=== PATIENT | female | born 1990 | race Two or more races ===

== ENCOUNTER 2019-04-06 17:26 | Inpatient (IN) | payer OTHER ==
[2019-04-06 17:55] VITALS: BMI 38.4
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
[2019-04-06] MEDS ORDERED: BISMUTH SUBSALICYLATE 524 MG/30 ML UD PO PRN (21:02)
[2019-04-06] MEDS ORDERED: MENTHOL/PHENOL 1 EACH UD MM PRN (21:02)
[2019-04-06] MEDS ORDERED: ACETAMINOPHEN 325 MG TABLET (FP) PO PRN ×2 (21:02)
[2019-04-06] MEDS ORDERED: IBUPROFEN 400 MG TABLET (FP) PO PRN (21:02)
[2019-04-06] MEDS ORDERED: MAG HYDROX/AL HYDROX/SIMETH 30 ML UNIT-DOSE CUP PO PRN (21:02)
[2019-04-06] MEDS ORDERED: MAGNESIUM CITRATE 300 ML BOTTLE PO PRN (21:02)
[2019-04-06] MEDS ORDERED: diazePAM 5 MG TABLET PO PRN (21:02)
[2019-04-06] MEDS ORDERED: MAGNESIUM HYDROX 2400MG/30ML ORAL SUSPENSION 30 ML CUP PO PRN (21:02)
[2019-04-06] MEDS: diazePAM 5 MG TABLET PO SCH (22:38)
[2019-04-06] MEDS: THIAMINE HCL 100 MG TABLET (FP) PO SCH (22:46)
[2019-04-06] MEDS: MELATONIN 5 MG TABLETS PO PRN (23:04)
[2019-04-07] MEDS: diazePAM 5 MG TABLET PO SCH ×3 (05:41→22:30)
[2019-04-07] MEDS: METHOCARBAMOL 500 MG TABLET PO PRN (05:43)
[2019-04-07] MEDS: hydrOXYzine PAMOATE 25 MG CAPSULE (FP) PO PRN (05:43)
[2019-04-07 09:52] LABS: HEMATOCRIT 32.9 % (32.4-45.2); HEMOGLOBIN 10.6 GM/dL (10.7-15.3); MCH 26.5 pg (25.7-33.7); MCHC 32.3 g/dl (32.0-36.0); MEAN PLT VOLUME 9.4 fl (7.5-11.1); PLATELET COUNT 88 K/MM3 (134-434); RBC 4.01 M/mm3 (3.60-5.2); RDW 15.5 % (11.6-15.6); WHITE BLOOD COUNT 5.5 K/mm3 (4.0-10.0)
[2019-04-07] MEDS ORDERED: ONDANSETRON *ODT* 4 MG TABLET SL ONE (09:57)
--- NOTE | 2019-04-07 10:02 | PN ---
S CIWA - CIWA Score Nausea/Vomitin-Mild Nausea/No Vomiting Muscle Tremors: 3 Anxiety: 4-Mod. Anxious/Guarded Agitation: 2 Paroxysmal Sweats: 2 Orientation: 0-Oriented Tacttile Disturbances: 0-None Auditory Disturbances: 0-None Visual Disturbances: 0-None Headache: 1-Very Mild CIWA-Ar Total Score: 13 [facility] Progress Note (SOAP) Subjective: 28 years old female admitted on 04/06/19 for benzo withdrawal sx management treating with valium detox regimen c/o nausea after breakfast zofran 8mg sl x 1 c/o chronic back pain treated with tylenal lidocaine patch to lumbar spin Objective: 04/07/19 10:02 Vital Signs Temperature 96.3 F L 04/07/19 09:15 Pulse Rate 83 04/07/19 09:15 Respiratory Rate 18 04/07/19 09:15 Blood Pressure 102/74 04/07/19 09:15 O2 Sat by Pulse Oximetry (%) Laboratory Last Values WBC 5.5 K/mm3 (4.0-10.0) 04/07/19 08:15 RBC 4.01 M/mm3 (3.60-5.2) 04/07/19 08:15 Hgb 10.6 GM/dL (10.7-15.3) L 04/07/19 08:15 Hct 32.9 % (32.4-45.2) 04/07/19 08:15 MCV 82.0 fl (80-96) 04/07/19 08:15 MCH 26.5 pg (25.7-33.7) 04/07/19 08:15 MCHC 32.3 g/dl (32.0-36.0) 04/07/19 08:15 RDW 15.5 % (11.6-15.6) 04/07/19 08:15 Plt Count 88 K/MM3 (134-434) L 04/07/19 08:15 MPV 9.4 fl (7.5-11.1) 04/07/19 08:15 POC Urine HCG, Qual Negative 04/06/19 18:30 lab noted low plt discontinue motrin Assessment: 04/07/19 10:04 benzo withdrawal Plan: valium regimen
--- NOTE | 2019-04-07 10:09 | EKG ---
Test Reason : Blood Pressure : / mmHG Vent. Rate : 079 BPM Atrial Rate : 079 BPM P-R Int : 126 ms QRS Dur : 088 ms QT Int : 366 ms P-R-T Axes : 048 022 -02 degrees QTc Int : 419 ms SINUS RHYTHM WITH SINUS ARRHYTHMIA OTHERWISE NORMAL ECG NO PREVIOUS ECGS AVAILABLE Confirmed by EREN JOE MD ([id number]) on 04/07/2019 10:08:47 AM Referred By: Olu Thornton Confirmed By:EREN JOE MD
[2019-04-07 10:14] LABS: ALBUMIN 3.7 g/dl (3.4-5.0); BILIRUBIN,TOTAL 0.2 mg/dL (0.2-1); BLOOD UREA NITROGEN 18.1 mg/dL (7-18); CALCIUM 8.6 mg/dL (8.5-10.1); CREATININE 0.9 mg/dL (0.55-1.3); POTASSIUM 3.9 mmol/L (3.5-5.1); TOT PROT 7.2 g/dl (6.4-8.2)
[2019-04-07] MEDS: PRENATAL VITAMINS W/ FOLIC ACID TABLET (FP) PO SCH (10:57)
[2019-04-07] MEDS: LIDOCAINE 5% TOPICAL PATCH TP SCH (10:58)
[2019-04-07] MEDS: cloNIDine HCL 0.1 MG TABLET PO PRN ×2 (11:06→22:30)
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
[2019-04-07] MEDS ORDERED: LIDOCAINE PATCH REMOVAL MC SCH (22:00)
[2019-04-07] MEDS: THIAMINE HCL 100 MG TABLET (FP) PO SCH (22:30)
[2019-04-07] MEDS: MELATONIN 5 MG TABLETS PO PRN (22:31)
[2019-04-08] MEDS ORDERED: diazePAM 5 MG TABLET PO SCH (06:00)
[2019-04-08] MEDS ORDERED: LOPERAMIDE HCL 2 MG CAPSULE PO ONE (09:48)
[2019-04-08] MEDS: LIDOCAINE 5% TOPICAL PATCH TP SCH (10:02)
[2019-04-08] MEDS: PRENATAL VITAMINS W/ FOLIC ACID TABLET (FP) PO SCH (10:02)
--- NOTE | 2019-04-08 12:32 | PN ---
S CIWA - CIWA Score Nausea/Vomitin-Mild Nausea/No Vomiting Muscle Tremors: 2 Anxiety: 2 Agitation: 2 Paroxysmal Sweats: 1-Minimal Palms Moist Orientation: 0-Oriented Tacttile Disturbances: 0-None Auditory Disturbances: 0-None Visual Disturbances: 0-None Headache: 1-Very Mild CIWA-Ar Total Score: 9 [facility] Progress Note (SOAP) Subjective: 28 years old female admitted on 04/06/19 for benzo withdrawal sx management treating with valium detox regimen c/o [place] stool imodium 4 mg po x 1 c/o chronic back pain encourage lidocain patch Objective: 04/08/19 12:32 Vital Signs Temperature 98.2 F 04/08/19 09:28 Pulse Rate 79 04/08/19 09:28 Respiratory Rate 18 04/08/19 09:28 Blood Pressure 111/74 04/08/19 09:28 O2 Sat by Pulse Oximetry (%) Laboratory Last Values WBC 5.5 K/mm3 (4.0-10.0) 04/07/19 08:15 RBC 4.01 M/mm3 (3.60-5.2) 04/07/19 08:15 Hgb 10.6 GM/dL (10.7-15.3) L 04/07/19 08:15 Hct 32.9 % (32.4-45.2) 04/07/19 08:15 MCV 82.0 fl (80-96) 04/07/19 08:15 MCH 26.5 pg (25.7-33.7) 04/07/19 08:15 MCHC 32.3 g/dl (32.0-36.0) 04/07/19 08:15 RDW 15.5 % (11.6-15.6) 04/07/19 08:15 Plt Count 88 K/MM3 (134-434) L 04/07/19 08:15 MPV 9.4 fl (7.5-11.1) 04/07/19 08:15 Sodium 141 mmol/L (136-145) 04/07/19 08:15 Potassium 3.9 mmol/L (3.5-5.1) 04/07/19 08:15 Chloride 109 mmol/L (98-107) H 04/07/19 08:15 Carbon Dioxide 26 mmol/L (21-32) 04/07/19 08:15 Anion Gap 6 MMOL/L (8-16) L 04/07/19 08:15 BUN 18.1 mg/dL (7-18) H 04/07/19 08:15 Creatinine 0.9 mg/dL (0.55-1.3) 04/07/19 08:15 Est GFR (CKD-EPI)AfAm 99.44 04/07/19 08:15 Est GFR (CKD-EPI)NonAf 85.80 04/07/19 08:15 Random Glucose 81 mg/dL (74-106) 04/07/19 08:15 Calcium 8.6 mg/dL (8.5-10.1) 04/07/19 08:15 Total Bilirubin 0.2 mg/dL (0.2-1) 04/07/19 08:15 AST 18 U/L (15-37) 04/07/19 08:15 ALT 43 U/L (13-61) 04/07/19 08:15 Alkaline Phosphatase 53 U/L (45-117) 04/07/19 08:15 Total Protein 7.2 g/dl (6.4-8.2) 04/07/19 08:15 Albumin 3.7 g/dl (3.4-5.0) 04/07/19 08:15 POC Urine HCG, Qual Negative 04/06/19 18:30 RPR Titer Nonreactive (NONREACTIVE) 04/07/19 08:15 lab noted 04/08/19 12:33 two round 2 cm in diameter bruises noted on right calf none tender on palpation and left lateral upper leg Assessment: 04/08/19 12:35 benzo withdrawal patient agrees to bring in lab report to primary care community health service provider for follow up Plan: valium regimen
[2019-04-08] MEDS: METHOCARBAMOL 500 MG TABLET PO PRN (12:47)
[2019-04-08] MEDS: hydrOXYzine PAMOATE 25 MG CAPSULE (FP) PO PRN (12:47)
[2019-04-08] MEDS: cloNIDine HCL 0.1 MG TABLET PO PRN (12:47)
[2019-04-08 13:07] VITALS: BP 107/74; PULSE 76; TEMP 98.7
--- NOTE | 2019-04-08 14:45 | DS ---
[facility] Detox Discharge Summary Admission Date: 04/06/19 Discharge Date: 04/08/19 - History Present History: Sedative Dependence Additional Comments: 28 years old female admitted on 04/06/19 for benzo withdrawal sx management treated with valium detox regimen patient tolerated well alert oriented x 3 seen by psychiatrist while in detox no medical intervention at this time patient prefers to go home today and prepare for [facility] admission tomorrow patient prefers to leave the detox unit today as one day early as estimated discharge date of 04/09/19 case discussed with the nurse routine discharge is appropriated respiratory clear lungs bilaterally on auscultation extremities full range of motion skin warm and dry Pertinent Past History: patient agrees to bringing in lab report to community primary health service provider for follow up - Physical Exam Results Vital Signs: Vital Signs Temperature 98.7 F 04/08/19 13:07 Pulse Rate 76 04/08/19 13:07 Respiratory Rate 18 04/08/19 13:07 Blood Pressure 107/74 04/08/19 13:07 O2 Sat by Pulse Oximetry (%) Pertinent Admission Physical Exam Findings: benzo withdrawal Laboratory Last Values WBC 5.5 K/mm3 (4.0-10.0) 04/07/19 08:15 RBC 4.01 M/mm3 (3.60-5.2) 04/07/19 08:15 Hgb 10.6 GM/dL (10.7-15.3) L 04/07/19 08:15 Hct 32.9 % (32.4-45.2) 04/07/19 08:15 MCV 82.0 fl (80-96) 04/07/19 08:15 MCH 26.5 pg (25.7-33.7) 04/07/19 08:15 MCHC 32.3 g/dl (32.0-36.0) 04/07/19 08:15 RDW 15.5 % (11.6-15.6) 04/07/19 08:15 Plt Count 88 K/MM3 (134-434) L 04/07/19 08:15 MPV 9.4 fl (7.5-11.1) 04/07/19 08:15 Sodium 141 mmol/L (136-145) 04/07/19 08:15 Potassium 3.9 mmol/L (3.5-5.1) 04/07/19 08:15 Chloride 109 mmol/L (98-107) H 04/07/19 08:15 Carbon Dioxide 26 mmol/L (21-32) 04/07/19 08:15 Anion Gap 6 MMOL/L (8-16) L 04/07/19 08:15 BUN 18.1 mg/dL (7-18) H 04/07/19 08:15 Creatinine 0.9 mg/dL (0.55-1.3) 04/07/19 08:15 Est GFR (CKD-EPI)AfAm 99.44 04/07/19 08:15 Est GFR (CKD-EPI)NonAf 85.80 04/07/19 08:15 Random Glucose 81 mg/dL (74-106) 04/07/19 08:15 Calcium 8.6 mg/dL (8.5-10.1) 04/07/19 08:15 Total Bilirubin 0.2 mg/dL (0.2-1) 04/07/19 08:15 AST 18 U/L (15-37) 04/07/19 08:15 ALT 43 U/L (13-61) 04/07/19 08:15 Alkaline Phosphatase 53 U/L (45-117) 04/07/19 08:15 Total Protein 7.2 g/dl (6.4-8.2) 04/07/19 08:15 Albumin 3.7 g/dl (3.4-5.0) 04/07/19 08:15 POC Urine HCG, Qual Negative 04/06/19 18:30 RPR Titer Nonreactive (NONREACTIVE) 04/07/19 08:15 lab noted patient was informed about the low plt and Mrs Cook will follow up with her primary care provider - Treatment Hospital Course: Detox Protocol Followed, Detoxed Safely, Responded well, Discharged Condition Good, Rehab Referral Accepted Patient has Accepted a Rehab Referral to: [facility] - Medication Discharge Medications: Ambulatory Orders NK [No Known Home Medication] 04/06/19 - Diagnosis (1) Sedative, hypnotic or anxiolytic dependence with withdrawal, uncomplicated Current Visit: Yes Status: Acute (2) Asthma Current Visit: Yes Status: Chronic Qualifiers: Asthma severity: mild Asthma persistence: intermittent Asthma complication type: with status asthmaticus Qualified Code(s): J45.22 - Mild intermittent asthma with status asthmaticus (3) GERD (gastroesophageal reflux disease) Current Visit: Yes Status: Chronic Qualifiers: Esophagitis presence: without esophagitis Qualified Code(s): K21.9 - Gastro -esophageal reflux disease without esophagitis (4) Substance induced mood disorder Current Visit: Yes Status: Suspected - AMA Did Patient Leave Against Medical Advice: No CIWA Score - CIWA Score Nausea/Vomitin-No Nausea/No Vomiting Muscle Tremors: 1-None Visible, but [place] Anxiety: 1-Mildly Anxious Agitation: 2 Paroxysmal Sweats: No Perspiration Orientation: 0-Oriented Tacttile Disturbances: 0-None Auditory Disturbances: 0-None Visual Disturbances: 0-None Headache: 1-Very Mild CIWA-Ar Total Score: 5
[2019-04-09] MEDS ORDERED: diazePAM 5 MG TABLET PO ONE (06:00)
== END 2019-04-08 14:45 | disposition home or self-care (01) | DRG 773 ==
LOC: YASAS 17:26 → Y3N 21:25
PROVIDERS: ADMIT Allergy & Immunology; ATTEND Allergy & Immunology
PROC: HZ2ZZZZ Detoxification Services for Substance Abuse Treatment (ICD-10-PCS; principal; 2019-04-06)
DX: F13.230 Sedative, hypnotic or anxiolytic dependence with withdrawal, uncomplicated (principal); F11.90 Opioid use, unspecified, uncomplicated; F14.90 Cocaine use, unspecified, uncomplicated; F12.10 Cannabis abuse, uncomplicated; F19.24 Other psychoactive substance dependence with psychoactive substance-induced mood disorder; J45.22 Mild intermittent asthma with status asthmaticus; K21.9 Gastro-esophageal reflux disease without esophagitis; Z87.891 Personal history of nicotine dependence; Z91.5 Personal history of self-harm
CPT/HCPCS: 36415; 80053; 81025; 85027; 86593; 93005; 93010; J0735; Q0162